=== PATIENT | male | born 1985 | race Caucasian/White ===

== ENCOUNTER 2018-08-10 13:01 | Day surgery (SDC) | payer OTHER ==
[2018-08-04 10:48] LABS: ABSOLUTE BASOPHILS # (AUTO) 0.1 10^3/uL (0.0-0.2); ABSOLUTE EOSINOPHILS # (AUTO) 0.4 10^3/uL (0.0-0.6); ABSOLUTE LYMPHOCYTES (AUTO) 1.9 10^3/uL (0.5-4.7); ABSOLUTE MONOCYTES (AUTO) 0.5 10^3/uL (0.1-1.4); ABSOLUTE NEUT (AUTO) 8.5 10^3/uL (1.7-8.2); BASOPHILS % (AUTO) 0.5 % (0-2); EOSINOPHILS % (AUTO) 3.3 % (0-6); HEMATOCRIT 43.7 % (37.9-51.0); HEMOGLOBIN 14.9 g/dL (13.5-17.0); LYMPHOCYTES % (AUTO) 16.4 % (13-45); MEAN CORPUSCULAR HEMOGLOBIN 30.5 pg (27.0-33.4); MEAN CORPUSCULAR HGB CONC 34.1 g/dL (32.0-36.0); MEAN CORPUSCULAR VOLUME 90 fl (80-97); MONOCYTES % (AUTO) 4.7 % (3-13); PLATELET COUNT 252 10^3/uL (150-450); RED BLOOD COUNT 4.89 10^6/uL (4.35-5.55); RED CELL DISTRIBUTION WIDTH 13.3 % (11.5-14.0); SEGMENTED NEUTROPHILS % (AUTO) 75.1 % (42-78); TOTAL CELLS COUNTED % (AUTO) 100 %; WHITE BLOOD COUNT 11.3 10^3/uL (4.0-10.5)
[2018-08-04 10:56] LABS: APPEARANCE,URINE CLEAR; BILIRUBIN,URINE NEGATIVE (NEGATIVE); COLOR,URINE YELLOW; GLUCOSE, URINE NEGATIVE (NEGATIVE); KETONES,URINE NEGATIVE (NEGATIVE); LEUKOCYTE ESTERASE,URINE NEGATIVE (NEGATIVE); NITRITE,URINE NEGATIVE (NEGATIVE); PROTEIN,URINE NEGATIVE (NEGATIVE); URINE SPECIFIC GRAVITY 1.028; UROBILINOGEN,URINE NEGATIVE mg/dL (<2.0)
[2018-08-04 11:08] LABS: ANION GAP 7 (5-19); BLOOD UREA NITROGEN 26 mg/dL (7-20); CALCIUM 9.7 mg/dL (8.4-10.2); CARBON DIOXIDE 30 mmol/L (22-30); CHLORIDE 102 mmol/L (98-107); GLUCOSE 121 mg/dL (75-110); POTASSIUM 5.1 mmol/L (3.6-5.0); SODIUM 139.1 mmol/L (137-145)
--- NOTE | 2018-08-05 13:09 | EKG REPORT ---
SEVERITY:- NORMAL ECG - SINUS RHYTHM : Confirmed by: Jia Howard 05-Aug-2018 13:08:32
[~2018-08-10 13:01] MED LIST: ALBUTEROL SULFATE 0.083% NEB 2.5 MG/3 ML AMPUL NEB ONE; CEFAZOLIN 2 GM/D5W RTU 2 GM/50 ML RTUPB IV PRN; LACTATED RINGERS 1000 ML IV PRN; RINGERS SOLUTION,LACTATED 1,000 ML IV ONE; RINGERS SOLUTION,LACTATED 1,000 ML IV PRN
[2018-08-10] MEDS ORDERED: MIDAZOLAM 2 MG/2 ML INJ ONE ×2 (13:31→13:39)
[2018-08-10] MEDS ORDERED: HYDROMORPHONE HCL INJ/PF 2 MG/ML AMPULE ONE (13:38)
[2018-08-10] MEDS ORDERED: FENTANYL CITRATE INJ/PF 100 MCG/2 ML AMPUL ONE (13:39)
[2018-08-10] MEDS ORDERED: PROPOFOL INJ 200 MG/20 ML VIAL IV ONE (13:39)
[2018-08-10] MEDS ORDERED: ALBUTEROL SULFATE 0.083% NEB 2.5 MG/3 ML AMPUL NEB ONE (13:51)
[2018-08-10] MEDS ORDERED: CEFAZOLIN 2 GM/D5W RTU 2 GM/50 ML RTUPB IV ONE (13:52)
[2018-08-10] MEDS ORDERED: DEXAMETHASONE SOD PHOSPHATE INJ 4 MG/1 ML VIAL ONE (14:20)
[2018-08-10] MEDS ORDERED: KETOROLAC TROMETHAMINE 60 MG/2 ML SDV ONE (14:20)
[2018-08-10] MEDS ORDERED: ONDANSETRON HCL INJ/PF 4 MG/2 ML SDV ONE (14:20)
[2018-08-10] MEDS ORDERED: SUCCINYLCHOLINE CHLORIDE INJ 200 MG/10 ML VIAL ONE (14:20)
[2018-08-10] MEDS ORDERED: MORPHINE SULFATE 10 MG/ML INJ IV PRN ×2 (14:39→16:49)
[2018-08-10] MEDS ORDERED: DIPHENHYDRAMINE HCL 50 MG/ML VIAL IV PRN (14:39)
[2018-08-10] MEDS ORDERED: MEPERIDINE HCL/PF INJ 25 MG/1 ML DISP.SYRIN IV PRN (14:39)
[2018-08-10] MEDS ORDERED: FENTANYL CITRATE INJ/PF 100 MCG/2 ML AMPUL IV PRN ×3 (14:39)
[2018-08-10] MEDS ORDERED: PROMETHAZINE HCL INJ 25 MG/1 ML VIAL IV PRN (14:39)
[2018-08-10] MEDS ORDERED: ACETAMINOPHEN 1,000 MG/100 ML RTUPB IV ONE (14:57)
[2018-08-10] MEDS ORDERED: BUPIVACAINE HCL 0.5 % INJ/PF 30 ML SDV ONE (16:16)
[2018-08-10] MEDS: FENTANYL CITRATE INJ/PF 100 MCG/2 ML AMPUL ONE ×2 (16:48→16:52)
[2018-08-10] MEDS ORDERED: ONDANSETRON HCL INJ/PF 4 MG/2 ML SDV IV PRN (16:49)
[2018-08-10] MEDS ORDERED: OXYCODONE-ACETAMINOPHEN 5-325 MG TABLET PO PRN (16:49)
--- NOTE | 2018-08-10 16:52 | RADIOLOGY REPORT (SQ) ---
EXAM DESCRIPTION: WRIST LEFT 2 VIEWS; NO CHG FLUORO COMPLETED DATE/TIME: 08/10/2018 4:40 pm REASON FOR STUDY: LEFT SCAPHOID OPEN REDUCTION WITH AUTOGRAFT S62.022K DISP FX OF MID 3RD OF NAVIC BONE OF L WRS, 7THK COMPARISON: None. FLUOROSCOPY TIME: 1 minutes 25 seconds 9 digital C-arm images saved to PACS. TECHNIQUE: Intra-operative images acquired during surgical procedure to evaluate progress. NUMBER OF IMAGES: 9 digital C-arm images LIMITATIONS: None. FINDINGS: Bone graft donor site in the distal radius metaphysis. Multiple C-arm images demonstrate ORIF of a nonunited scaphoid fracture. Small accessory bone fragment between the scaphoid and trapez ium bones. Please see the operative report for further details IMPRESSION: Intra procedural imaging and fluoro COMMENT: Quality ID [id number]: Final reports for procedures using fluoroscopy that document radiation exp osure indices, or exposure time and number of fluorographic images (if radiation exposure indices are not available) Please consult full operative report of the attending physician for description of the procedure. TECHNICAL DOCUMENTATION: JOB ID: [id number] [employer]- All Rights Reserved Reading location - IP/workstation name: [email or web address]
--- NOTE | 2018-08-10 16:52 | RADIOLOGY REPORT (SQ) ---
EXAM DESCRIPTION: WRIST LEFT 2 VIEWS; NO CHG FLUORO COMPLETED DATE/TIME: 08/10/2018 4:40 pm REASON FOR STUDY: LEFT SCAPHOID OPEN REDUCTION WITH AUTOGRAFT S62.022K DISP FX OF MID 3RD OF NAVIC BONE OF L WRS, 7THK COMPARISON: None. FLUOROSCOPY TIME: 1 minutes 25 seconds 9 digital C-arm images saved to PACS. TECHNIQUE: Intra-operative images acquired during surgical procedure to evaluate progress. NUMBER OF IMAGES: 9 digital C-arm images LIMITATIONS: None. FINDINGS: Bone graft donor site in the distal radius metaphysis. Multiple C-arm images demonstrate ORIF of a nonunited scaphoid fracture. Small accessory bone fragment between the scaphoid and trapez ium bones. Please see the operative report for further details IMPRESSION: Intra procedural imaging and fluoro COMMENT: Quality ID [id number]: Final reports for procedures using fluoroscopy that document radiation exp osure indices, or exposure time and number of fluorographic images (if radiation exposure indices are not available) Please consult full operative report of the attending physician for description of the procedure. TECHNICAL DOCUMENTATION: JOB ID: [id number] [employer]- All Rights Reserved Reading location - IP/workstation name: [email or web address]
--- NOTE | 2018-08-10 16:54 | Operative Report ---
Operative Report PREOPERATIVE DIAGNOSIS: Left Scaphoid Nonunion POSTOPERATIVE DIAGNOSIS: Same OPERATION: ORIF left scaphoid nonunion with placement of distal radius autograft SURGEON: SARAH SEGAL ANESTHESIA: GA COMPLICATIONS: None ESTIMATED BLOOD LOSS: Minimal PROCEDURE: Indication for the procedure: 32-year-old male who sustained an injury to his left wrist. He was seen at the emergency room where x-rays were performed demonstrate no evidence of fracture. Upon follow-up with a provider at our office patient had repeat radiographs demonstrating scaphoid nonunion and was sent for further evaluation and discussion of treatment. Patient had findings of scaphoid waist nonunion with old distal scaphoid tubercle fracture. Given the scaphoid nonunion along the waist was more acute nature decision was made to proceed with operative intervention which included open reduction internal fixation with possible bone grafting. Risks and benefits along with prognosis and outcomes were explained to the patient patient verbalized understanding consented for surgical procedure. Procedure In Detail: Patient was seen and evaluated in the preoperative holding area. The LEFT upper extremity was initialized and marked. Patient received 2g of Ancef IV for bacterial prophylaxis. Patient was taken back to the operative room where transferred to the operative table and placed under general anesthesia. Once they were adequately anesthetized a nonsterile tourniquet was placed on the upper extremity. A surgical team debriefing was performed ensuring all instr umentation was available, the surgical procedure was discussed with possible concerns reviewed. The upper extremity was prepped with chlorhexidine and alcohol and draped in a sterile fashion. A timeout was done identifying correct patient, procedure and extremity everyone in attendance agree with this and verbalized no concerns. The extremity was exsanguinated the tourniquet was inflated to 250 mmHg. Posterior skin incision was made just ulnar to Sofiya's tubercle. Blunt dissection was performed. EPL tendon was identified and retracted. Transverse capsulotomy was made over the proximal aspect of the scaphoid confirmed with C- arm fluoroscopy. Starting point was identified just adjacent to the scapholunate ligament. K wire for many AccuTrack screw was then placed perpendicular to the fracture and a slightly dorsal and ulnar direction given patient's previous scaphoid tubercle nonunion. Multiple views including AP, lateral, oblique and supinated oblique were obtained demonstrating appropriate placement of the K wire. K wire measured 24 mm and thus decision was made to place a 20 mm AccuTrack mini screw. Prior to placement the screw bone graft would be harvested and placed into the defect. Under C-arm fluoroscopy the nonunion site was identified and debrided with a small curette. With the Acumed bone graft harvester bone graft was obtained adjacent to the second dorsal compartment retracting the ECRL/ECRB to expose the area. The bone graft harvester was then placed the cancellus bone graft was impacted and placed in the back table. This area was copiously irrigated with normal saline. The bone graft was then impacted into the scaphoid nonunion defect with the previous K wire under live C-arm fluoroscopy. Once adequate amount of bone graft was obtained the K wire for a mini Acutrak screw was placed once again into position this was confirmed it had the exact tract of previous K wire via C arm fluoroscopy. The 20 mm mini Acutrak screw was then placed across the fracture site obtaining excellent fixation. C-arm fluoroscopy was then obtained including AP, lateral, supinated and pronated oblique which demonstrated appropriate placement of the screw no evidence of intra-articular protrusion with normal scapholunate angle. Wound was then copiously irrigated with normal saline. AccuTrack screw entry point was directly identified to ensure there is no evidence of intra-articular penetration. The previous bone graft harvest site was then packed with the test synthetic bone graft. Capsulotomy was closed with interrupted 3-0 Monocryl suture. Sub cutaneous tissues closed with 3-0 Monocryl suture. Skin was closed with running subcuticular 4-0 Monocryl reinforced with Dermabond and Steri-Strips. 30 cc of 0.5% benzocaine with out epinephrine was injected for postoperative pain control. Patient was placed in a thumb spica splint. Sponge counts, instrument counts, needle counts were correct. Patient was then awoken from anesthesia. Transferred from the operating room table to the operating room stretcher. There was no intraoperative complications patient tolerated procedure well stable to PACU. Postoperative plan: Patient thought in the office in 2 weeks at which point will obtain radiographs and transition to a thumb spica cast until radiographic union is confirmed on x- ray.
--- NOTE | 2018-08-10 16:54 | Discharge Summary ---
Discharge Summary (SDC) - Discharge Final Diagnosis: Left scaphoid waist nonunion Date of Surgery: 08/10/18 Discharge Date: 08/10/18 Condition: Good Treatment or Instructions: Schedule Follow Up w/ Dr. Erich Clemente @ [facility] to be seen in 10-14 days or as scheduled [place]: [place]: [place]: Ice and elevate Keep splint clean/dry/intact, do not remove. If your fingers become numb please unwrap the Vik wrap but leave the splint in place, if the sensation does not return within 30 minutes please return to the emergency department. May begin finger range of motion attempting to make full fist. Please use ibuprofen (Motrin or Advil) 600-800 mg every 8 hours as needed for pain or fever DO NOT TAKE w/ TORADOL may use once TORADOL complete. You may also use acetaminophen (Tylenol) 1000 mg every 4-6 hours as needed for pain or fever. Please be aware that many medications contain acetaminophen, do not exceed a total of 1000 mg of acetaminophen every 6 hours. If ibuprofen and acetaminophen are not sufficient for your pain you may take the Percocet/[place]. Please be aware that the Percocet/[place] does contain Tylenol. Stool softener of choice when on pain medication. USE OF [id number] IBUPROFEN: Ibuprofen (Advil, Nuprin, Medipren, Motrin IB) is a medication for fever and pain control. In addition, it has anti- inflammatory effects which may be beneficial, especially in the treatment of injuries. It's best to take ibuprofen with food. Persons with ulcer disease or allergy to aspirin should notify their physician of this before taking ibuprofen. Ibuprofen can be given every four to six hours, for a total of four doses daily. Age Pain or fever dose Antiinflammatory dose 6-8 yr 200 mg (1 tab) 200 mg (1 tab) 9-11 yr 200 mg (1 tab) 200-400 mg (1-2 tab) 11-14 yr 200-400 mg (1-2 tab) 400 mg (2 tab) 15-adult 400 mg (2 tab) 600 mg (3 tab) ORAL NARCOTIC MEDICATION: You have been given a prescription for pain control. This medication is a narcotic. It's best taken with food, as nausea can result if taken on an empty stomach. Don't operate machinery or drive within six hours of taking this medication. Do not combine this medicine with alcohol, or with any medication which can cause sedation (such as cold tablets or sleeping pills) unless you get permission from the physician. Narcotics tend to cause constipation. If possible, drink plenty of fluids and eat a diet high in fiber and fruits. Please be aware that prescription narcotics also have the potential for abuse. People become addicted to these medications because of the general sense of wellbeing that they induce. This feeling along with a significant reduction in tension, anxiety, and aggression provides a stimulating seductive quality to these drugs. Once your pain is under control, we encourage you to discard your unused narcotics. Prescriptions: Oxycodone HCl/Acetaminophen [Percocet 5-325 mg Tablet] 1 tab PO Q6 PRN #25 tab PRN Reason: Discharge Diet: As Tolerated Discharge Activity: No Lifting Over 10 Pounds, No Lifting/Push/Pulling Report the Following to Your Physician Immediately: Unusual Bleeding, Redness, Swelling, Warmth
[2018-08-10] MEDS ORDERED: LORAZEPAM INJ 2 MG/1 ML VIAL ONE (17:03)
[2018-08-10] MEDS ORDERED: OXYCODONE-ACETAMINOPHEN 5-325 MG TABLET ONE (17:51)
[2018-08-10 19:01] VITALS: BP 142/86
== END 2018-08-10 18:45 | disposition home or self-care (01) ==
LOC: OROUT 13:01
PROVIDERS: ATTEND Orthopaedic Surgery
DX: S62.022K Displaced fracture of middle third of navicular [scaphoid] bone of left wrist, subsequent encounter for fracture with nonunion (principal); X58.XXXD Exposure to other specified factors, subsequent encounter; F17.210 Nicotine dependence, cigarettes, uncomplicated; Z01.810 Encounter for preprocedural cardiovascular examination; Z01.811 Encounter for preprocedural respiratory examination
CPT/HCPCS: 01830; 36415; 80048; 81001; 85025; 93005; 93010; C1713; C1769; J0131; J0330; J0690; J1100; J1170; J1885; J2060; J2250; J2405; J2704; J3010; J3490